=== PATIENT | female | born 1955 | race Caucasian/White ===

== ENCOUNTER → 2016-12-24 | Outpatient (CLI) | payer BC ==
[~2016-12-24] MED LIST: ASPI325T45; ATV/1 PO; ESTR0.3T; IBUP-1050 PO; MULT-506 PO; PARO1TAB27 PO; TYLOTC500 PO
--- NOTE | 2016-12-24 14:08 | MAMMOGRAPHY REPORT ---
BILATERAL DIGITAL SCREENING MAMMOGRAM TOMOSYNTHESIS WITH CAD: 12/24/2016 CLINICAL HISTORY: Routine screening. Patient has no complaints. TECHNIQUE: Breast tomosynthesis in addition to standard 2D mammography was performed. Current study was also evaluated with a Computer Aided Detection (CAD) system. COMPARISON: Comparison is made to exams dated: 12/30/2015 mammogram, 12/22/2015 mammogram, 12/19/2014 mammogram, 12/18/2013 mammogram, 12/11/2012 mammogram, and 12/08/2011 mammogram - [facility] enter. BREAST COMPOSITION: There are scattered areas of fibroglandular density in both breasts. FINDINGS: No suspicious masses, calcifications, or areas of architectural distortion are noted in e ither breast. There has been no significant interval change compared to prior exams. IMPRESSION: ACR BI-RADS CATEGORY 1: NEGATIVE There is no mammographic evidence of malignancy. A 1 year screening mammogram is recommended. The p atient will receive written notification of the results. Approximately 10% of breast cancers are not detected with mammography. A negative mammographic repor t should not delay biopsy if a clinically suggestive mass is present. Pia Payne M.D. ah/:12/24/2016 12:14:16 Member Of Parliament: [place] EUBANKS(Mildred)(Darryl), [facility] letter sent: Normal 1/2 BI-RADS Code: ACR BI-RADS Category 1: Negative
== END | disposition home or self-care (01) ==
LOC: C.MAMM 10:40
PROVIDERS: ATTEND Obstetrics & Gynecology
DX: Z12.31 Encounter for screening mammogram for malignant neoplasm of breast (principal)

== ENCOUNTER → 2017-11-17 | Outpatient (CLI) | payer OTHER ==
--- NOTE | 2017-11-17 14:46 | DIAGNOSTIC IMAGING REPORT ---
C-SPINE ROUTINE 4 OR 5 VIEWS CLINICAL HISTORY: NECK PAIN, BILATERAL ARM PAIN COMPARISON STUDY: Cervical spine radiographs June 12, 2013. FINDINGS: Straightening of the normal cervical lordosis is noted. The patient is status post C5-C6 fusion. There is no fracture or suspicious lesion within the cervical spine. There is moderate disc space narrowing at C4-C5 and C6-C7. There is [id number] multilevel bony neural foraminal narrowing. IMPRESSION: 1. Status post C5-C6 fusion. 2. Moderate disc space narrowing and osteophytosis at C4-C5 and C6-C7. 3. Mild to moderate multilevel bony neural foraminal narrowing. 4. No fracture. Electronically signed by: Doyle Talley M.D. 11/17/2017 2:45 PM Dictated Date/Time: 11/17/2017 2:43 PM
--- NOTE | 2017-11-17 14:48 | DIAGNOSTIC IMAGING REPORT ---
THORACIC SPINE 3 VIEWS ROUTINE CLINICAL HISTORY: NECK PAIN, BILATERAL ARM PAIN COMPARISON STUDY: Thoracic spine radiographs June 12, 2013. FINDINGS: Mild dextroscoliosis of the thoracic spine is noted. No fracture is identified. Vertebral body heights are maintained. No osseous lesion is identified by radiography. IMPRESSION: 1. No fracture or subluxation within the thoracic spine. 2. Mild dextroscoliosis of the midthoracic spine. Electronically signed by: Doyle Talley M.D. 11/17/2017 2:47 PM Dictated Date/Time: 11/17/2017 2:45 PM
== END | disposition home or self-care (01) ==
LOC: C.RADBC 14:18
PROVIDERS: ATTEND Nurse Practitioner Family
DX: M79.601 Pain in right arm (principal); M25.78 Osteophyte, vertebrae; M48.02 Spinal stenosis, cervical region; M41.84 Other forms of scoliosis, thoracic region; Z98.1 Arthrodesis status

== ENCOUNTER → 2018-01-12 | Outpatient (CLI) | payer OTHER ==
--- NOTE | 2018-01-12 15:05 | MAMMOGRAPHY REPORT ---
BILATERAL DIGITAL SCREENING MAMMOGRAM TOMOSYNTHESIS WITH CAD: 01/12/2018 CLINICAL HISTORY: Routine screening. Patient has no complaints. TECHNIQUE: Breast tomosynthesis in addition to standard 2D mammography was performed. Current study was also evaluated with a Computer Aided Detection (CAD) system. COMPARISON: Comparison is made to exams dated: 12/24/2016 mammogram, 12/30/2015 mammogram, 12/22/2015 m ammogram, 12/19/2014 mammogram, 12/18/2013 mammogram, and 12/11/2012 mammogram - [facility] nter. BREAST COMPOSITION: There are scattered areas of fibroglandular density in both breasts. FINDINGS: No suspicious masses, calcifications, or areas of architectural distortion are noted in ei ther breast. There has been no significant interval change compared to prior exams. IMPRESSION: ACR BI-RADS CATEGORY 1: NEGATIVE There is no mammographic evidence of malignancy. A 1 year screening mammogram is recommended. The pa tient will receive written notification of the results. Approximately 10% of breast cancers are not detected with mammography. A negative mammographic report should not delay biopsy if a clinically suggestive mass is present. Pia Payne M.D. /:01/12/2018 12:14:41 Fluid Designer: [place] EUBANKS(Mildred)(M), [facility] letter sent: Normal 1/2 BI-RADS Code: ACR BI-RADS Category 1: Negative
== END | disposition home or self-care (01) ==
LOC: C.MAMM 11:40
PROVIDERS: ATTEND Family Medicine
DX: Z12.31 Encounter for screening mammogram for malignant neoplasm of breast (principal)

== ENCOUNTER → 2018-06-06 | Outpatient (CLI) | payer OTHER ==
[~2018-06-06] MED LIST changes: +ASPECOTC; -ASPI325T45
--- NOTE | 2018-06-06 10:59 | DIAGNOSTIC IMAGING REPORT ---
MRI CERVICAL WITHOUT CONTRAST CLINICAL HISTORY: CERVICAL SPONDYLOSIS SEVERE NECK PAIN WITH BILATERAL ARM RADICULOPATHY. TECHNIQUE: Sagittal and axial T1, T2 and STIR images were obtained. COMPARISON STUDY: Conventional radiographic study dated 11/17/2017 There are no suspicious areas of marrow replacement. No intrinsic cervical cord lesions are visualized. There are postsurgical changes of a C5-6 spinal fusion. C2-3: There is no evidence of disc bulge or focal herniation. There is no spinal or foraminal stenosis. C3-4: There is no evidence of disc bulge or focal herniation. There is no spinal or foraminal stenosis. C4-5: There is a disc osteophyte complex. There is mild spinal stenosis. There is mild bilateral foraminal narrowing. C5-6 :There are postsurgical changes are prior discectomy and fusion. There is no evidence for disc herniation. There is no spinal or foraminal stenosis C6-7: There is a small disc osteophyte complex. There is slight effacement of the anterior thecal sac but no significant spinal stenosis. There is mild left-sided foraminal narrowing. C7-T1: There is no evidence of disc bulge or focal herniation. There is no evidence of spinal or foraminal stenosis. Disc bulges are suspected within the upper thoracic level at the T2-3 and T3-4 levels. IMPRESSION: 1. Postsurgical changes the CT 5-6 level 2. Degenerative changes with disc osteophyte complexes at the C4-5 and C6-7 levels. This results in mild spinal stenosis at the C4-5 level, bilateral foraminal narrowing the C4-5 level, and left-sided foraminal narrowing at the C6-7 level. Electronically signed by: David Cartwright M.D. 06/06/2018 10:57 AM Dictated Date/Time: 06/06/2018 10:53 AM
== END | disposition home or self-care (01) ==
LOC: C.MRI 09:39
PROVIDERS: ATTEND Physical Medicine & Rehabilitation
DX: M25.511 Pain in right shoulder (principal); M43.12 Spondylolisthesis, cervical region; Z98.1 Arthrodesis status